=== PATIENT | female | born 1940 ===

== ENCOUNTER 2022-05-31 10:31 | Outpatient (CLI) | payer MEDICARE, OTHER ==
[2022-05-31] MEDS ORDERED: Magnevist 469MG/ML 20 ML VIAL ONE (14:30)
== END 2022-05-31 10:32 | disposition home or self-care (01) ==
LOC: CSHMRI 10:31
PROVIDERS: ATTEND Internal Medicine Gastroenterology
DX: R79.89 Other specified abnormal findings of blood chemistry (principal); R93.5 Abnormal findings on diagnostic imaging of other abdominal regions, including retroperitoneum; K83.8 Other specified diseases of biliary tract; K80.20 Calculus of gallbladder without cholecystitis without obstruction; R18.8 Other ascites; I51.7 Cardiomegaly
CPT/HCPCS: 74183; A9579